=== PATIENT | female | born 1975 | race Hispanic/Latino ===

== ENCOUNTER 2020-09-27 21:34 | Emergency (ER) | payer MEDICAID ==
[2020-09-28] MEDS ORDERED: SOLU-MEDROL 40MG VIAL ONE (01:11)
[2020-09-28 01:12] LABS: BASOPHILS % (AUTO) 0.6 % (0.0-5.0); EOSINOPHILS % (AUTO) 0.9 % (0.0-8.0); HEMATOCRIT 34.4 % (36-48); LYMPHOCYTES % (AUTO) 15.9 % (21.0-51.0); MEAN CORPUSCULAR HEMOGLOBIN 19.3 pg (27.0-33.0); MEAN CORPUSCULAR HGB CONC 28.2 g/dL (32.0-36.0); MEAN CORPUSCULAR VOLUME 68.4 fL (79-99); MONOCYTES % (AUTO) 11.1 % (3.0-13.0); NEUTROPHILS % (AUTO) 71.3 % (40.0-77.0); PLATELET COUNT (AUTO) 226 K/uL (130-400); RED BLOOD CELL COUNT(AUTO) 5.03 MIL/uL (4.00-5.50); WHITE BLOOD COUNT (AUTO) 9.5 K/uL (4.8-10.8)
[2020-09-28 01:24] LABS: CREATININE 0.5 mg/dL (0.5-1.5); POTASSIUM 4.3 mmol/L (3.5-5.1)
[2020-09-28 01:29] LABS: ALBUMIN 3.9 g/dL (3.5-5.0); BILIRUBIN,TOTAL 1.2 mg/dL (0.2-1.0)
== END 2020-09-28 02:44 | disposition home or self-care (01) ==
LOC: MERGE 21:34 → EDH 21:34
DX: M79.10 Myalgia, unspecified site (principal); G44.219 Episodic tension-type headache, not intractable; M19.90 Unspecified osteoarthritis, unspecified site; E78.00 Pure hypercholesterolemia, unspecified; Z90.49 Acquired absence of other specified parts of digestive tract; Z98.890 Other specified postprocedural states
CPT/HCPCS: 36415; 80053; 85025; 96374; 99283; J2920

== ENCOUNTER → 2020-10-26 | Outpatient (CLI) | payer MEDICAID | END | disposition home or self-care (01) | LOC: RAH 11:12 | PROVIDERS: ATTEND Internal Medicine | DX: R92.2 Inconclusive mammogram (principal); N60.12 Diffuse cystic mastopathy of left breast; N64.4 Mastodynia | CPT/HCPCS: 77066 ==

== ENCOUNTER 2021-10-08 09:08 | Emergency (ER) | payer MEDICAID ==
[~2021-10-08] VITALS: Ht 162.6 cm; Wt 71.2 kg
[2021-10-08 09:45] LABS: BASOPHILS % (AUTO) 0.5 % (0.0-5.0); EOSINOPHILS % (AUTO) 2.1 % (0.0-8.0); HEMATOCRIT 42.5 % (36-48); LYMPHOCYTES % (AUTO) 24.9 % (21.0-51.0); MEAN CORPUSCULAR HGB CONC 32.2 g/dL (32.0-36.0); MEAN CORPUSCULAR VOLUME 86.7 fL (79-99); MONOCYTES % (AUTO) 17.7 % (3.0-13.0); NEUTROPHILS % (AUTO) 54.5 % (40.0-77.0); PLATELET COUNT (AUTO) 196 K/uL (130-400); RED CELL DISTRIBUTION WIDTH 13.6 % (11.0-15.5); WHITE BLOOD COUNT (AUTO) 3.7 K/uL (4.8-10.8)
[2021-10-08] MEDS ORDERED: ACETAMINOPHEN 500 MG TABLET ONE (09:55)
[2021-10-08 09:59] LABS: APPEARANCE,URINE Clear (CLEAR); BILIRUBIN,URINE Negative (NEGATIVE); COLOR,URINE Yellow (YELLOW); GLUCOSE, URINE (UA) Negative (NEGATIVE); KETONES,URINE Negative (NEGATIVE); LEUKOCYTE ESTERASE ,URINE Negative (NEGATIVE); NITRATE,URINE Negative (NEGATIVE); OCCULT BLOOD,URINE Negative (NEGATIVE); PROTEIN,URINE Negative (NEGATIVE)
[2021-10-08] MEDS ORDERED: ACETAMINOPHEN 500 MG TABLET PO SCH (10:00)
[2021-10-08 10:04] LABS: POTASSIUM 3.9 mmol/L (3.5-5.1)
[2021-10-08 10:05] LABS: ALBUMIN 3.6 g/dL (3.5-5.0); CREATININE 0.5 mg/dL (0.5-1.5); TOTAL PROTEIN, SERUM 7.3 g/dL (6.0-8.3)
[2021-10-08 10:08] LABS: AMPHET/METH SCREEN,URINE NEGATIVE (NEGATIVE); BARBITURATE SCREEN, URINE NEGATIVE (NEGATIVE); CANNABINOID SCREEN,URINE NEGATIVE (NEGATIVE); COCAINE SCREEN,URINE NEGATIVE (NEGATIVE); OPIATE SCREEN,URINE NEGATIVE (NEGATIVE); PHENCYCLIDINE SCREEN,URINE NEGATIVE (NEGATIVE)
[2021-10-08 10:39] LABS: BENZODIAZEPINES SCREEN,URINE NEGATIVE (NEGATIVE)
[2021-10-08 13:07] VITALS: BP 121/61
== END 2021-10-08 13:20 | disposition home or self-care (01) ==
LOC: EDH 09:08
DX: F41.9 Anxiety disorder, unspecified (principal); E78.00 Pure hypercholesterolemia, unspecified; Z90.89 Acquired absence of other organs; Z98.890 Other specified postprocedural states
CPT/HCPCS: 36415; 70450; 80053; 80305; 81003; 81025; 84484; 85025; 93005

== ENCOUNTER → 2022-02-27 | Outpatient (CLI) | payer MEDICAID | END | disposition home or self-care (01) | LOC: RAH 09:32 | PROVIDERS: ATTEND Family Medicine | DX: N92.0 Excessive and frequent menstruation with regular cycle (principal) | CPT/HCPCS: 76856 ==

== ENCOUNTER → 2022-07-10 | Outpatient (CLI) | payer MEDICAID ==
[~2022-07-10] MED LIST: CIPR-279 PO; METR375C2 PO
[2022-07-10 16:30] LABS: BASOPHILS % (AUTO) 0.4 % (0.0-5.0); EOSINOPHILS % (AUTO) 0.9 % (0.0-8.0); LYMPHOCYTES % (AUTO) 19.8 % (21.0-51.0); MEAN CORPUSCULAR HEMOGLOBIN 28.2 pg (27.0-33.0); MEAN CORPUSCULAR HGB CONC 32.9 g/dL (32.0-36.0); MEAN CORPUSCULAR VOLUME 85.9 fL (79-99); MONOCYTES % (AUTO) 11.1 % (3.0-13.0); NEUTROPHILS % (AUTO) 67.4 % (40.0-77.0); PLATELET COUNT (AUTO) 241 K/uL (130-400); RED BLOOD CELL COUNT(AUTO) 5.24 MIL/uL (4.00-5.50); RED CELL DISTRIBUTION WIDTH 14.4 % (11.0-15.5); WHITE BLOOD COUNT (AUTO) 5.7 K/uL (4.8-10.8)
[2022-07-10 16:55] LABS: CREATININE 0.5 mg/dL (0.5-1.5); MAGNESIUM 1.7 mg/dL (1.80-2.40); POTASSIUM 3.8 mmol/L (3.5-5.1); THYROID STIMULATING HORMONE 0.68 uIU/mL (0.36-3.74); TOTAL PROTEIN, SERUM 7.8 g/dL (6.0-8.3)
[2022-07-10 16:56] LABS: HEMOGLOBIN A1C 5.8 % (4.0-6.0)
== END | disposition home or self-care (01) ==
LOC: LAB 14:05
PROVIDERS: ATTEND Physician Assistant
DX: I10 Essential (primary) hypertension (principal); R00.2 Palpitations
CPT/HCPCS: 36415; 80053; 80061; 82306; 83036; 83735; 84436; 84443; 84479; 85025

== ENCOUNTER → 2022-07-11 | Outpatient (CLI) | payer MEDICAID | END | disposition home or self-care (01) | LOC: SHCH 13:11 | PROVIDERS: ATTEND Internal Medicine Cardiovascular Disease | DX: R01.1 Cardiac murmur, unspecified (principal); I10 Essential (primary) hypertension | CPT/HCPCS: 93306 ==

== ENCOUNTER → 2022-07-26 | Outpatient (CLI) | payer MEDICAID | END | disposition home or self-care (01) | LOC: SHCH 15:34 | PROVIDERS: ATTEND Internal Medicine Cardiovascular Disease | DX: R01.1 Cardiac murmur, unspecified (principal); I65.23 Occlusion and stenosis of bilateral carotid arteries | CPT/HCPCS: 93880 ==

== ENCOUNTER → 2022-07-31 | Outpatient (CLI) | payer OTHER | END | disposition home or self-care (01) | LOC: RAH 13:45 | PROVIDERS: ATTEND Internal Medicine Cardiovascular Disease | DX: Z13.6 Encounter for screening for cardiovascular disorders (principal) | CPT/HCPCS: 75571 ==

== ENCOUNTER 2023-04-08 09:04 | Emergency (ER) | payer OTHER, SELFPAY ==
[~2023-04-08] VITALS: Ht 162.6 cm; Wt 72.6 kg
[2023-04-08 09:42] LABS: SARS-CoV-2, RNA, NAAT NEGATIVE SARS CoV-2 (NEGATIVE)
[2023-04-08 09:46] LABS: BASOPHILS # (AUTO) 0.01 K/uL (0.00-0.20); BASOPHILS % (AUTO) 0.2 % (0.0-5.0); HEMATOCRIT 40.4 % (36-48); IMMATURE GRANULOCYTE ABSOLUTE 0.01 K/uL (0-1); LYMPHOCYTES # (AUTO) 0.5 K/uL (1.0-4.8); MEAN CORPUSCULAR HEMOGLOBIN 30.3 pg (27.0-33.0); MEAN CORPUSCULAR HGB CONC 34.4 g/dL (32.0-36.0); MONOCYTES # (AUTO) 0.5 K/uL (0.1-1.0); MONOCYTES % (AUTO) 12.1 % (3.0-13.0); NEUTROPHILS # (AUTO) 3.5 K/uL (1.8-7.7); NEUTROPHILS % (AUTO) 77.5 % (40.0-77.0); PLATELET COUNT (AUTO) 170 K/uL (130-400); RED BLOOD CELL COUNT(AUTO) 4.59 MIL/uL (4.00-5.50); RED CELL DISTRIBUTION WIDTH 13.2 % (11.0-15.5); WHITE BLOOD COUNT (AUTO) 4.5 K/uL (4.8-10.8)
[2023-04-08 09:47] LABS: INFLUENZA TYPE A Negative For Type A (NEGATIVE); INFLUENZA TYPE B Negative For Type B (NEGATIVE)
[2023-04-08 09:51] LABS: ADD UA MICROSCOPIC YES
[2023-04-08 09:59] LABS: APPEARANCE,URINE CLEAR (CLEAR); BILIRUBIN,URINE NEGATIVE (NEGATIVE); COLOR,URINE YELLOW (YELLOW); GLUCOSE, URINE (UA) NEGATIVE (NEGATIVE); KETONES,URINE NEGATIVE (NEGATIVE); LEUKOCYTE ESTERASE ,URINE NEGATIVE Leu/uL (NEGATIVE); MUCUS,URINE RARE LPF (None Seen); NITRATE,URINE NEGATIVE (NEGATIVE); OCCULT BLOOD,URINE NEGATIVE (NEGATIVE); PROTEIN,URINE NEGATIVE (NEGATIVE); RBC,URINE 0-1 /HPF (0-1); SQUAMOUS EPITHELIAL CELL,UR RARE /HPF (0-2); UROBILINOGEN,URINE 3 mg/dL (0.2-1.0); WBC,URINE 0-1 /HPF (0-1)
[2023-04-08 10:00] LABS: CREATININE 0.7 mg/dL (0.5-1.5); POTASSIUM 3.6 mmol/L (3.5-5.1)
[2023-04-08] MEDS ORDERED: LACTATED RINGERS 1000ML 1,000 ML IV ONE (10:00)
[2023-04-08] MEDS ORDERED: METOCLOPRAMIDE 10 MG/2 ML VIAL IVP ONE (10:00)
[2023-04-08] MEDS ORDERED: DEXAMETHASONE SOD PHOSPHATE 4 MG/ML 1ML VIAL IVP ONE (10:00)
[2023-04-08] MEDS ORDERED: KETOROLAC 30MG VIAL (30MG/ML) IVP ONE (10:00)
[2023-04-08] MEDS ORDERED: FAMOTIDINE 20MG VIAL IV ONE (10:00)
[2023-04-08 10:48] VITALS: BP 112/64; PULSE 89; RESP 17; O2SAT 96
[2023-04-08] MEDS ORDERED: METO-296 PO (12:08)
== END 2023-04-08 12:49 | disposition home or self-care (01) ==
LOC: EDH 09:04
DX: G44.209 Tension-type headache, unspecified, not intractable (principal); B34.9 Viral infection, unspecified; Z20.822 Contact with and (suspected) exposure to COVID-19; Z79.899 Other long term (current) drug therapy
CPT/HCPCS: 99284; 96374; 96375; 87635; 96361; 80048; 85025; 87040 ×2; 87088; 87804 ×2; 83605; 81001; 36415; J1100; C9803; J3490; J7030; J1885; J2765

== ENCOUNTER 2024-05-02 11:09 | Emergency (ER) | payer BC ==
[~2024-05-02] VITALS: Ht 160 cm; Wt 74.8 kg
[~2024-05-02 11:09] MED LIST changes: -CIPR-279 PO; +DIPH25CA85 PO; +DOXY100T2 PO; +IBUP-2070 PO; +METO-296 PO; -METR375C2 PO; +ONDA-245 PO
[2024-05-02 12:10] LABS: BASOPHILS # (AUTO) 0.03 K/uL (0.00-0.20); BASOPHILS % (AUTO) 0.4 % (0.0-5.0); EOSINOPHILS # (AUTO) 0.05 K/uL (0.00-0.70); EOSINOPHILS % (AUTO) 0.6 % (0.0-8.0); HEMATOCRIT 44.3 % (36-48); IMMATURE GRANULOCYTE ABSOLUTE 0.02 K/uL (0-1); LYMPHOCYTES # (AUTO) 1.4 K/uL (1.0-4.8); LYMPHOCYTES % (AUTO) 16.4 % (21.0-51.0); MEAN CORPUSCULAR HEMOGLOBIN 30.7 pg (27.0-33.0); MEAN CORPUSCULAR HGB CONC 34.8 g/dL (32.0-36.0); MEAN CORPUSCULAR VOLUME 88.4 fL (79-99); MONOCYTES # (AUTO) 0.7 K/uL (0.1-1.0); MONOCYTES % (AUTO) 8.4 % (3.0-13.0); NEUTROPHILS # (AUTO) 6.2 K/uL (1.8-7.7); PLATELET COUNT (AUTO) 263 K/uL (130-400); RED BLOOD CELL COUNT(AUTO) 5.01 MIL/uL (4.00-5.50); RED CELL DISTRIBUTION WIDTH 12.2 % (11.0-15.5); WHITE BLOOD COUNT (AUTO) 8.4 K/uL (4.8-10.8)
[2024-05-02 12:11] LABS: CREATININE 0.5 mg/dL (0.5-1.0); POTASSIUM 3.7 mmol/L (3.5-5.1)
--- NOTE | 2024-05-02 12:45 | ERN ---
General Chief Complaint: Abdominal Pain Stated Complaint: ABD PAIN. NAUSEA Time Seen by MD: 11:10 Time Seen by Midlevel: 11:10 Source: patient History of Present Illness Initial Comments 48-year-old female presents to the ED for evaluation of left lower quadrant abdominal pain onset 3 days ago. Patient reports nausea, but denies any other associated symptoms at this time. Medical history of diverticulitis. Allergies: Coded Allergies: iodine (Unverified Allergy, Mild, HIVES, 04/13/23) morphine (Unverified Allergy, Mild, SHORTNESS OF BREATH, 04/13/23) Home Meds Active Scripts Ketorolac Tromethamine (Ketorolac Tromethamine) 10 Mg Tablet, 1 TAB PO TID for pain for 5 Days, #15 TAB 0 Refills Prov:RAINER RIOS 05/02/24 Metronidazole (Flagyl) 375 Mg Capsule, 1 CAP PO BID for 7 Days, #14 CAP 0 Refills Prov:RAINER RIOS 05/02/24 Ciprofloxacin HCl (Cipro) 500 Mg Tablet, 5 TAB PO BID for 5 Days, #10 TAB 0 Refills Prov:RAINER RIOS 05/02/24 Diphenhydramine HCl (Benadryl) 25 Mg Capsule, 25 MG PO Q6HPRN PRN for HEADACHE for 15 Days, #30 CAP 0 Refills Take with ibuprofen and zofran for headache Prov:KENTON GRAY MD 04/17/23 Ondansetron (Ondansetron Odt) 8 Mg Tab.rapdis, 8 MG PO Q6HPRN PRN for HEADACHE for 15 Days, #30 TAB 0 Refills Take with ibuprofen and benadryl for headache Prov:KENTON GRAY MD 04/17/23 Ibuprofen (Ibuprofen) 600 Mg Tablet, 600 MG PO Q6H PRN for HEADACHE, #30 TAB 0 Refills Take with Zofran and benadryl for headache control Prov:KENTON GRAY MD 04/17/23 Doxycycline Hyclate (Doxycycline Hyclate) 100 Mg Tablet, 100 MG PO BID, #20 TAB 0 Refills Prov:KENTON GRAY MD 04/17/23 Metoclopramide HCl (Reglan) 10 Mg Tablet, 10 MG PO QIDP PRN for headache, #40 TAB 2 Refills Prov:KELLY REYNOSO Sr., MD 04/08/23 Past Medical History Past Medical History: Diverticulitis, High Cholesterol Past Surgical History: Appendectomy, , Unknown Social History Social History: Negative ROS Dictation Constitutional: Negative for fever,chills, and weight loss Eyes: Negative for injury, pain,redness, and discharge ENT: Negative for injury,pain or swelling Cardiovascular: Negative for chest pain, palpitations, and edema Respiratory: Negative for shortness of breath, cough, and wheezing, Abdomen/GI: Positive for abdominal pain, nausea negative for vomiting, diarrhea , and constipation Back: Negative for injury and pain : Negative for injury, bleeding and discharge MS/Extremity: Negative for injury and deformity Skin: Negative for rash, and discoloration Neuro: Negative for headache, weakness, numbness, tingling, and seizure Psych: Negative for suicide ideation, homicidal ideation, and hallucinations Physical Exam Physical Exam Dictation General: awake, alert, NAD Head/Face: Normocephalic, atraumatic Eyes: PERRL, EOMI, vision at baseline ENT: oral cavity clear, TMs clear, no signs of infection Neck: Trachea midline, supple, no nuchal rigidity Cardiovascular: RRR, normal S1/S2, No MRGs, no JVD Respiratory: CTAB, no respiratory distress, No rales or wheezes Abdomen: Soft, non-tender, non-distended, normal bowel sounds, no guarding or rebound. Skin: Warm, dry, normal turgor, no rash MS/Extremity: Pulses equal, no cyanosis, neurovascular intact, FROM Neuro: COAx4, GCS 15, strength 5/5, CN 2-12 intact, normal cerebellar exam, normal gait, Psych: Normal behavior, mood, and affect normal Results Laboratory and Microbiology Lab and Micro Result Laboratory Tests Test 05/02/24 11:57 05/02/24 13:06 White Blood Count 8.4 K/uL (4.8-10.8) Red Blood Count 5.01 MIL/uL (4.00-5.50) Hemoglobin 15.4 g/dL (12.0-16.0) Hematocrit 44.3 % (36-48) Mean Corpuscular Volume 88.4 fL (79-99) Mean Corpuscular Hemoglobin 30.7 pg (27.0-33.0) Mean Corpuscular Hemoglobin Concent 34.8 g/dL (32.0-36.0) Red Cell Distribution Width 12.2 % (11.0-15.5) Platelet Count 263 K/uL (130-400) Mean Platelet Volume 11.2 fL (7.5-10.5) H Immature Granulocyte % (Auto) 0.2 % (0-1) Neutrophils (%) (Auto) 74.0 % (40.0-77.0) Lymphocytes (%) (Auto) 16.4 % (21.0-51.0) L Monocytes (%) (Auto) 8.4 % (3.0-13.0) Eosinophils (%) (Auto) 0.6 % (0.0-8.0) Basophils (%) (Auto) 0.4 % (0.0-5.0) Neutrophils # (Auto) 6.2 K/uL (1.8-7.7) Lymphocytes # (Auto) 1.4 K/uL (1.0-4.8) Monocytes # (Auto) 0.7 K/uL (0.1-1.0) Eosinophils # (Auto) 0.05 K/uL (0.00-0.70) Basophils # (Auto) 0.03 K/uL (0.00-0.20) Absolute Immature Granulocyte (auto 0.02 K/uL (0-1) Nucleated Red Blood Cells 0.0 % (0.0-0.19) Sodium Level 141 mmol/L (136-145) Potassium Level 3.7 mmol/L (3.5-5.1) Chloride Level 103 mmol/L (101-111) Carbon Dioxide Level 30 mmol/L (21-32) Blood Urea Nitrogen 8 mg/dL (7-18) Creatinine 0.5 mg/dL (0.5-1.0) Glomerular Filtration Rate Calc 116 mL/min (>90) Random Glucose 85 mg/dL (70-105) Lactic Acid Level 2.0 mmol/L (0.8-2.5) Total Calcium 9.5 mg/dL (8.5-10.1) Serum Test, Qualitative NEGATIVE (NEGATIVE) Urine Color LIGHT-YELLOW (YELLOW) Urine Appearance CLEAR (CLEAR) Urine pH 7.0 (5.0-8.0) Urine Specific [place] 1.008 (1.001-1.031) Urine Protein NEGATIVE mg/dL (NEGATIVE) Urine Glucose (UA) NEGATIVE mg/dL (NEGATIVE) Urine Ketones NEGATIVE mg/dL (NEGATIVE) Urine Occult Blood NEGATIVE (NEGATIVE) Urine Nitrate NEGATIVE (NEGATIVE) Urine Bilirubin NEGATIVE mg/dL (NEGATIVE) Urine Urobilinogen 0.2 mg/dL (0.2-1.0) Urine Leukocyte Esterase NEGATIVE [place]/uL Labs Reviewed?: Yes MDM MDM: Differential diagnosis: Abdominal pain, diverticulitis Previous outside records reviewed: Old ER visits. Need for hospitalization: Patient does not meet criteria for hospitalization. Need for emergency major/minor surgery: No Patient's prior external medical records from other ER visits were reviewed by me as indicated. Prior testing and results from previous visits were reviewed. Prior tests were taken into account with medical decision making and resource utilization, independent historian/historians were used to obtain complete medical history. I independently interpreted the test that were performed, results were reviewed by me and considered findings on radiology if ordered. Medical management and examination interpretation discussions were had by me with other qualified healthcare professionals as indicated for the patient's care. ED Course Orders Procedure Category Date Status Time Cbc With Differential LAB 05/02/24 Complete 11:14 Basic Metabolic Panel LAB 05/02/24 Complete 11:14 Lactic Acid LAB 05/02/24 Complete 11:14 Testing, LAB 05/02/24 Complete Serum Hcg 11:14 Urinalysis Profile LAB 05/02/24 Complete 11:14 Ct Abdomen/Pelvis W/O CT 05/02/24 Resulted Contrast 13:04 0.9%Nacl 1000ml (Ns PHA 05/02/24 Complete 1000ml) 14:30 Ketorolac PHA 05/02/24 Complete Tromethamine 15mg/Ml 14:30 Ceftriaxone 1g Vial PHA 05/02/24 Complete (Rocephine 1g Inj) 14:30 Current Medications Medications (Trade) Dose Ordered Sig/Dany Route PRN Reason Start Time Stop Time Status Last Admin Dose Admin Ceftriaxone Sodium (ROCEphine 1G INJ) 1 gm ONCE ONCE IVPB 05/02/24 14:30 05/02/24 14:31 DC 05/02/24 14:32 Ketorolac Tromethamine (toRADol) 15 mg ONCE ONCE IV 05/02/24 14:30 05/02/24 14:31 DC 05/02/24 14:32 Sodium Chloride 1,000 ml @ 0 mls/hr ONCE ONCE IV 05/02/24 14:30 05/02/24 14:31 DC 05/02/24 14:32 Vital Signs Date Time Temp Pulse Resp B/P (MAP) Pulse Ox O2 Delivery O2 Flow Rate FiO2 05/02/24 15:19 97.3 73 18 119/73 100 Room Air* 0 21 05/02/24 14:28 97.3 70 18 124/72 100 Room Air* 0 21 05/02/24 11:10 97.9 85 16 119/80 98 Room Air 0 [facility] [address] [place] [address] IMAGING REPORT Signed PATIENT: HAROON ALMONTE MR#: [id number] : 1975 SEX: F AGE: 48 LOCATION: [facility] ORDER 1305 STATUS: REG ER REPORT#: [id number] SERVICE 1304 REASON: llq abd pain ORDERING PHYSICIAN: RAINER RIOS PROCEDURE: ABD PEL WO - CT ABDOMEN/PELVIS W/O CONTRAST CT ABDOMEN/PELVIS W/O CONTRAST HISTORY: Vasculitis COMPARISON: None TECHNIQUE: Multiple sequential axial images of the abdomen and pelvis were obtained from the dome of the diaphragm through symphysis pubis. Patient was not given contrast through intravenous route. Oral contrast was not given. FINDINGS: No pleural effusion is seen bilaterally. There is no evidence of parenchymal disease or pulmonary nodule of the visualized lower lungs. Degenerative changes of the thoracolumbar spine are present. The heart is not enlarged. The liver is enlarged measuring 20 cm. Gallstones are seen in the gallbladder. Tiny hiatal hernia is seen. There is fluid-filled colon. There is diverticulosis. There is sigmoid colon wall thickening with adjacent fat stranding is suggested of acute symmetric diverticulitis. No focal abscess is seen. The liver, spleen, adrenal glands and pancreas are unremarkable. There is no evidence of hydronephrosis bilaterally. No evidence of renal stone is seen. Fecal material is seen in the colon. There are normal size retroperitoneal and mesenteric lymph nodes. No ascites is seen. Atherosclerotic changes are present. Pelvic sidewalls are symmetric bilaterally. Bladder is poorly distended. IMPRESSION: 1. There is diverticulosis. There is sigmoid colon wall thickening with adjacent fat stranding is suggested of acute symmetric diverticulitis. No focal abscess is seen. CT was performed with one or more following dose reduction techniques: automated exposure control, adjustment of the mA and kv according to patient's size, or use of a iterative reconstruction technique. DICTATED BY: ILSA PRITCHETT MD DATE: 05/02/24 1355 ELECTRONICALLY SIGNED BY: ILSA PRITCHETT MD DATE: 05/02/24 1402 Patient came in with left lower quadrant pain was found to have diverticulitis. However, her blood work is unremarkable. There was no leukocytosis. Her lactic acid is normal. CT scan of the abdomen and pelvis shows acute uncomplicated diverticulitis with no evidence of abscess or perforation. Patient was given pain management in the emergency department along with antibiotics. She was discharged home on Cipro and Flagyl for outpatient management. DX & DISP Disposition: Discharge Departure Impression: Primary Impression: Diverticulitis Condition: Stable Scripts Ketorolac Tromethamine (Ketorolac Tromethamine) 10 Mg Tablet 1 TAB PO TID for pain for 5 Days, #15 TAB 0 Refills Prov: RAINER RIOS 05/02/24 Metronidazole (Flagyl) 375 Mg Capsule 1 CAP PO BID for 7 Days, #14 CAP 0 Refills Prov: RAINER RIOS 05/02/24 Ciprofloxacin HCl (Cipro) 500 Mg Tablet 5 TAB PO BID for 5 Days, #10 TAB 0 Refills Prov: RAINER RIOS 05/02/24 Referrals: MARLYS RAMIREZ (PCP) Time of Disposition: 14:58 I have reviewed, & agreed with my scribe's, documentation. (Entered by Radha Aguilar, acting as a scribe for BROOKE Rios) I have reviewed the case, and I agree with, Diagnosis and Plan I performed the substantive portion of the visit. I have reviewed and personally made and approve the management plan that is documented in the note by myself or the AROLDO. I acknowledge for responsibility for the patient's management plan. I personally scribed for RAINER RIOS ([email or web address]) on 05/02/24 at 12:45. Electronically submitted by Radha Aguilar ([email or web address]). RAINER RIOS May 02, 2024 12:45
[2024-05-02 13:36] LABS: APPEARANCE,URINE CLEAR (CLEAR); BILIRUBIN,URINE NEGATIVE (NEGATIVE); COLOR,URINE LIGHT-YELLOW (YELLOW); GLUCOSE, URINE (UA) NEGATIVE (NEGATIVE); KETONES,URINE NEGATIVE (NEGATIVE); LEUKOCYTE ESTERASE ,URINE NEGATIVE Leu/uL (NEGATIVE); NITRATE,URINE NEGATIVE (NEGATIVE); OCCULT BLOOD,URINE NEGATIVE (NEGATIVE); PROTEIN,URINE NEGATIVE (NEGATIVE); UROBILINOGEN,URINE 0.2 mg/dL (0.2-1.0)
[2024-05-02 13:37] LABS: ADD UA MICROSCOPIC NO
--- NOTE | 2024-05-02 14:02 | HMCIMG ---
CT ABDOMEN/PELVIS W/O CONTRAST HISTORY: Vasculitis COMPARISON: None TECHNIQUE: Multiple sequential axial images of the abdomen and pelvis were obtained from the dome of the diaphragm through symphysis pubis. Patient was not given contrast through intravenous route. Oral contrast was not given. FINDINGS: No pleural effusion is seen bilaterally. There is no evidence of parenchymal disease or pulmonary nodule of the visualized lower lungs. Degenerative changes of the thoracolumbar spine are present. The heart is not enlarged. The liver is enlarged measuring 20 cm. Gallstones are seen in the gallbladder. Tiny hiatal hernia is seen. There is fluid-filled colon. There is diverticulosis. There is sigmoid colon wall thickening with adjacent fat stranding is suggested of acute symmetric diverticulitis. No focal abscess is seen. The liver, spleen, adrenal glands and pancreas are unremarkable. There is no evidence of hydronephrosis bilaterally. No evidence of renal stone is seen. Fecal material is seen in the colon. There are normal size retroperitoneal and mesenteric lymph nodes. No ascites is seen. Atherosclerotic changes are present. Pelvic sidewalls are symmetric bilaterally. Bladder is poorly distended. IMPRESSION: 1. There is diverticulosis. There is sigmoid colon wall thickening with adjacent fat stranding is suggested of acute symmetric diverticulitis. No focal abscess is seen. CT was performed with one or more following dose reduction techniques: automated exposure control, adjustment of the mA and kv according to patient's size, or use of a iterative reconstruction technique.
[2024-05-02] MEDS: ketOROlac 15MG/ML VIAL (15MG/ML) IV ONE (14:32)
[2024-05-02] MEDS: 0.9%NACL 1000ML 1,000 ML IV ONE (14:32)
[2024-05-02] MEDS: cefTRIAXone 1G VIAL IVPB ONE (14:32)
[2024-05-02] MEDS ORDERED: KETO10TA2 PO (14:59)
[2024-05-02] MEDS ORDERED: CIPR-278 PO (14:59)
[2024-05-02] MEDS ORDERED: METR375C2 PO (14:59)
[2024-05-02 15:19] VITALS: BP 119/73; PULSE 73; RESP 18; TEMP 97.3; O2SAT 100
== END 2024-05-02 15:29 | disposition home or self-care (01) ==
LOC: EDH 11:09
DX: K57.32 Diverticulitis of large intestine without perforation or abscess without bleeding (principal); E78.00 Pure hypercholesterolemia, unspecified; Z88.5 Allergy status to narcotic agent; Z88.8 Allergy status to other drugs, medicaments and biological substances; Z90.49 Acquired absence of other specified parts of digestive tract; Z91.041 Radiographic dye allergy status; Z98.890 Other specified postprocedural states
CPT/HCPCS: 99284; 74176; 96365; 96375; 80048; 84703; 85025; 83605; 81003; 36415; J7030; J0696; J1885

== ENCOUNTER 2024-12-24 17:22 | Emergency (ER) | payer BC ==
[~2024-12-24] VITALS: Ht 162.6 cm; Wt 72.6 kg
[~2024-12-24 17:22] MED LIST changes: +CIPR-278 PO; +KETO10TA2 PO; +METR375C2 PO
[2024-12-24 17:48] LABS: IMMATURE GRANULOCYTE ABSOLUTE 0.02 K/uL (0-1); NUCLEATED RED BLOOD CELLS 0.0 % (0.0-0.19); PLATELET COUNT (AUTO) 197 K/uL (130-400); RED BLOOD CELL COUNT(AUTO) 4.74 MIL/uL (4.00-5.50); RED CELL DISTRIBUTION WIDTH 12.4 % (11.0-15.5); WHITE BLOOD COUNT (AUTO) 5.0 K/uL (4.8-10.8)
[2024-12-24 17:58] LABS: CREATININE 0.5 mg/dL (0.5-1.0); GLOMERULAR FILTR. RATE CALC 115.0 mL/min (>90); GLUCOSE,RANDOM 101.0 mg/dL (70-105); SODIUM SERUM 141.0 mmol/L (136-145); UREA NITROGEN, BLOOD 12.0 mg/dL (7-18)
--- NOTE | 2024-12-24 18:23 | HMCIMG ---
EXAM: Right foot radiograph 3 view HISTORY: Pain COMPARISON: None TECHNIQUE: AP, lateral and oblique views of the foot FINDINGS: No acute fracture or dislocation. Calcaneal enthesophyte. Mild soft tissue swelling. IMPRESSION: No fracture or dislocation /[place]
[2024-12-24 18:34] LABS: RAPID GROUP A STREP negative (NEGATIVE)
[2024-12-24 18:35] VITALS: BP 125/73; PULSE 88; RESP 16; TEMP 99; O2SAT 97
[2024-12-24 18:44] LABS: INFLUENZA TYPE A Negative For Type A (NEGATIVE); INFLUENZA TYPE B Negative For Type B (NEGATIVE)
[2024-12-24 18:52] LABS: SARS-CoV-2, RNA, NAAT POSITIVE SARS CoV-2 (NEGATIVE)
[2024-12-24] MEDS ORDERED: AZIT250T9 PO (19:08)
[2024-12-24] MEDS ORDERED: METH4TAB3 PO (19:08)
--- NOTE | 2024-12-24 19:10 | ERN ---
General Chief Complaint: Flu Symptoms Stated Complaint: FLU SYMPTOMS Time Seen by MD: 17:24 Time Seen by Midlevel: 17:24 Source: patient History of Present Illness Initial Comments Patient is a 49-year-old female presenting to the emergency department for evaluation of flu-like symptoms and headache. Symptoms consist of generalized body weakness, rhinorrhea, and a sore throat. She was a reports a posterior headache. Additionally she reports pain to her right foot. She had previously injured her right foot and wanted to see if she could get an x-ray. Denies any other symptoms Allergies: Coded Allergies: iodine (Unverified Allergy, Mild, HIVES, 04/13/23) morphine (Unverified Allergy, Mild, SHORTNESS OF BREATH, 04/13/23) Home Meds Active Scripts Ketorolac Tromethamine (Ketorolac Tromethamine) 10 Mg Tablet, 1 TAB PO TID for pain for 5 Days, #15 TAB 0 Refills Prov:RAINER GENTILE 05/02/24 Metronidazole (Flagyl) 375 Mg Capsule, 1 CAP PO BID for 7 Days, #14 CAP 0 Refills Prov:RAINER GENTILE 05/02/24 Ciprofloxacin HCl (Cipro) 500 Mg Tablet, 5 TAB PO BID for 5 Days, #10 TAB 0 Refills Prov:RAINER GENTILE 05/02/24 Diphenhydramine HCl (Benadryl) 25 Mg Capsule, 25 MG PO Q6HPRN PRN for HEADACHE for 15 Days, #30 CAP 0 Refills Take with ibuprofen and zofran for headache Prov:KENTON GRAY MD 04/17/23 Ondansetron (Ondansetron Odt) 8 Mg Tab.rapdis, 8 MG PO Q6HPRN PRN for HEADACHE for 15 Days, #30 TAB 0 Refills Take with ibuprofen and benadryl for headache Prov:KENTON GRAY MD 04/17/23 Ibuprofen (Ibuprofen) 600 Mg Tablet, 600 MG PO Q6H PRN for HEADACHE, #30 TAB 0 Refills Take with Zofran and benadryl for headache control Prov:KENTON GRAY MD 04/17/23 Doxycycline Hyclate (Doxycycline Hyclate) 100 Mg Tablet, 100 MG PO BID, #20 TAB 0 Refills Prov:KENTON GRAY MD 04/17/23 Metoclopramide HCl (Reglan) 10 Mg Tablet, 10 MG PO QIDP PRN for headache, #40 TAB 2 Refills Prov:KELLY REYNOSO Sr., MD 04/08/23 Past Medical History Past Medical History: Diverticulitis, High Cholesterol Past Surgical History: Appendectomy, , Unknown Social History Social History: Negative ROS Dictation CONSTITUTIONAL: Negative except for HPI HEAD/FACE: Negative except for HPI EENT: Negative except for HPI RESPIRATORY: Negative except for HPI GASTROINTESTINAL/ABDOMINAL: Negative except for HPI GENITOURINARY: Negative except for HPI MUSCULOSKELETAL: Negative except for HPI INTEGUMENTARY: Negative except for HPI NEUROLOGICAL/PSYCH: Negative except for HPI HEMATOLOGIC/LYMPHATIC: Negative except for HPI All Systems Negative, Except as noted above. 13 point review of systems assessed and all negative except for above. Physical Exam Physical Exam Dictation Vital Signs reviewed General Appearance: Alert, oriented x 3, no acute distress, well developed, nourished. Head and Face: non-traumatic. Eyes: PERRL, pink conjunctivas, eyelid no trauma, anterior chamber with arcus senilis. Ears: Pinnas intact and no signs of trauma or erythema ear canals clear and no discharge TM no erythema Nose: No discharge, no bleeding. Oropharynx: Mouth normal, tongue pink, pharynx clear,no erythema, tonsils no exudates, no abscesses noted, mucous membrane moist Neck: Supple, non-tender, no thyromegaly, no masses, no JVD, no bruits Breast:Deferred Chest:No tenderness, no crepitus, no paradoxical movement, no retractions Lungs:Clear, well-ventilated, symmetric, no rales, no wheezing, no rhonchi, no stridor, good breath sounds bilaterally Heart: Regular rate, regular rhythm, no murmur, no gallops Vascular: no peripheral edema, Abdomen: Soft, positive bowel sounds, nondistended, no guarding, nontender, no rebound, no masses no hepatomegaly, no splenomegaly, no Joshi's sign, no hernias. Rectal: Deferred Genital: Deferred Neurological: Normal speech, motor function intact, sensory function intact Musculoskeletal: Neck nontender, full range of motion, back nontender, full range of motion, Extremities: nontender, full range of motion Skin: Color pink, dry, no turgor, no rash, no lacerations, no abrasions, no contusions. Lymphatic: Deferred Results Laboratory and Microbiology Lab and Micro Result Laboratory Tests Test 12/24/24 17:41 12/24/24 18:18 White Blood Count 5.0 K/uL (4.8-10.8) Red Blood Count 4.74 MIL/uL (4.00-5.50) Hemoglobin 14.6 g/dL (12.0-16.0) Hematocrit 41.3 % (36-48) Mean Corpuscular Volume 87.1 fL (79-99) Mean Corpuscular Hemoglobin 30.8 pg (27.0-33.0) Mean Corpuscular Hemoglobin Concent 35.4 g/dL (32.0-36.0) Red Cell Distribution Width 12.4 % (11.0-15.5) Platelet Count 197 K/uL (130-400) Mean Platelet Volume 11.2 fL (7.5-10.5) H Immature Granulocyte % (Auto) 0.4 % (0-1) Neutrophils (%) (Auto) 74.8 % (40.0-77.0) Lymphocytes (%) (Auto) 9.0 % (21.0-51.0) L Monocytes (%) (Auto) 14.8 % (3.0-13.0) H Eosinophils (%) (Auto) 0.6 % (0.0-8.0) Basophils (%) (Auto) 0.4 % (0.0-5.0) Neutrophils # (Auto) 3.8 K/uL (1.8-7.7) Lymphocytes # (Auto) 0.5 K/uL (1.0-4.8) L Monocytes # (Auto) 0.7 K/uL (0.1-1.0) Eosinophils # (Auto) 0.03 K/uL (0.00-0.70) Basophils # (Auto) 0.02 K/uL (0.00-0.20) Absolute Immature Granulocyte (auto 0.02 K/uL (0-1) Nucleated Red Blood Cells 0.0 % (0.0-0.19) White Cell Morphology Comment See comments Sodium Level 141 mmol/L (136-145) Potassium Level 3.6 mmol/L (3.5-5.1) Chloride Level 106 mmol/L (101-111) Carbon Dioxide Level 26 mmol/L (21-32) Blood Urea Nitrogen 12 mg/dL (7-18) Creatinine 0.5 mg/dL (0.5-1.0) Glomerular Filtration Rate Calc 115 mL/min (>90) Random Glucose 101 mg/dL (70-105) Total Calcium 9.2 mg/dL (8.5-10.1) Influenza Type A Antigen Negative For Type A Influenza Type B Antigen Negative For Type B SARS-CoV-2, RNA, NAAT POSITIVE SARS CoV-2 Group A Streptococcus Rapid negative (NEGATIVE) Labs Reviewed?: Yes MDM MDM: Differential diagnosis: Viral illness, upper respiratory infection, dehydration, electrolyte abnormality, pneumonia, bronchitis There are no social concerns with this patient. Prescription drug management Prescriptions will include: Medrol pack, azithromycin Medical management and examination interpretation discussions were had by me with other qualified healthcare professionals as indicated for the patient's care. ED Course Orders Procedure Category Date Status Time Cbc With Differential LAB 12/24/24 Complete 17:29 Basic Metabolic Panel LAB 12/24/24 Complete 17:29 Covid Rna Naat LAB 12/24/24 Complete 17:29 Influenza Type A & B, LAB 12/24/24 Complete Rapid 17:29 Rapid (Group A Strep) LAB 12/24/24 Complete 17:29 Chest 1vw RAD 12/24/24 Taken 17:29 Foot Comp 3+Vws Rt RAD 12/24/24 Resulted 17:29 Dexamethasone 4mg/Ml PHA 12/24/24 Complete 1ml Vial (Dexametha 17:30 Ketorolac PHA 12/24/24 Complete Tromethamine 15mg/Ml 17:30 Current Medications Medications (Trade) Dose Ordered Sig/Dany Route PRN Reason Start Time Stop Time Status Last Admin Dose Admin Dexamethasone Sodium Phosphate (dexaMETHasone 4MG/ML 1ML VIAL) 10 mg ONCE ONCE IM 12/24/24 17:30 12/24/24 17:32 DC 12/24/24 18:43 Ketorolac Tromethamine (toRADol) 15 mg ONCE ONCE IM 12/24/24 17:30 12/24/24 17:32 DC 12/24/24 18:44 Vital Signs Date Time Temp Pulse Resp B/P (MAP) Pulse Ox O2 Delivery O2 Flow Rate FiO2 12/24/24 18:35 99.0 88 16 125/73 97 Room Air* 0 21 12/24/24 17:24 100.4 97 16 130/72 96 Room Air 0 DX & DISP Disposition: Discharge Departure Impression: Primary Impression: COVID-19 Condition: Stable Scripts Methylprednisolone (Medrol) 4 Mg Tab.ds.pk 1 TAB PO AD for 6 Days, #21 TAB 0 Refills 6 on day 1 then reduce by one tablet daily until gone Prov: RAINER GENTILE 12/24/24 Azithromycin (Azithromycin) 250 Mg Tablet 1 TAB PO AD for 5 Days, #6 TAB 0 Refills 2 the first day followed by 1 for days 2-5 Prov: RAINER GENTILE 12/24/24 Additional Instructions: Your blood work today is unremarkable. Your chest x-ray shows no evidence of pneumonia. You have tested positive for COVID-19. Referrals: MARLYS RAMIREZ (PCP) Time of Disposition: 19:08 I have reviewed the case, and I agree with, Diagnosis and Plan I performed the substantive portion of the visit. I have reviewed and personally made and approve the management plan that is documented in the note by myself or the AROLDO. I acknowledge for responsibility for the patient's management plan. RAINER GENTILE Dec 24, 2024 19:10
--- NOTE | 2024-12-26 16:39 | HMCIMG ---
EXAM: CR Chest, 1 View. CLINICAL HISTORY: cough/sob COMPARISON: None provided. FINDINGS: LUNGS: The lungs show no infiltrate or other acute finding. PLEURAL SPACES: No pleural effusion or pneumothorax. MEDIASTINUM: The cardiomediastinal silhouette is within normal limits. BONES: No aggressive appearing osseous lesion seen. IMPRESSION: No acute cardiopulmonary pathology is evident. /[place]
== END 2024-12-24 19:18 | disposition home or self-care (01) ==
LOC: EDH 17:22
DX: U07.1 COVID-19 (principal); E78.00 Pure hypercholesterolemia, unspecified; Z88.5 Allergy status to narcotic agent; Z88.8 Allergy status to other drugs, medicaments and biological substances; Z90.49 Acquired absence of other specified parts of digestive tract; Z79.899 Other long term (current) drug therapy
CPT/HCPCS: 99284; 71045; 87635; 80048; 85025; 87880; 87804 ×2; 36415; 73630; 96372 ×2; J1100; J1885